=== PATIENT | female | born 2000 ===

== ENCOUNTER 2023-11-17 15:23 | Outpatient (CLI) | payer BC, SELFPAY ==
[2023-11-17 20:13] LABS: Alanine Aminotransferase 18 U/L (6-35); Albumin Level 4.8 g/dL (3.5-5.1); Alkaline Phosphatase 101 U/L (38-126); Anion Gap 10 mmol/L (4-12); Aspartate Amino Transferase 45 U/L (14-36); Bilirubin,Total 0.4 mg/dL (0.2-1.3); Blood Urea Nitrogen 11 mg/dL (7-17); Calcium 10.1 mg/dL (8.4-10.2); Carbon Dioxide 24 mmol/L (22-30); Chloride 105 mmol/L (98-107); Estimated Glomerular Filt Rate > 60; Glucose 98 mg/dL (65-110); Potassium 4.3 mmol/L (3.4-5.0); Sodium 139 mmol/L (137-145)
[2023-11-17 20:38] LABS: Iron 93 ug/dL (37-170)
[2023-11-17 20:39] LABS: Hematocrit 47.5 % (37.0-47.0); Hemoglobin 15.4 g/dL (12.0-15.0); Mean Corpuscular HGB Conc 32.4 g/dl (32-36); Mean Corpuscular Hemoglobin 30.7 pg (26-34); Mean Corpuscular Volume 94.6 fl (80-100); Mean Platelet Volume 12.8 fl (7.4-10.4); Platelet Count Result 332 k/mm3 (150-375); Red Blood Count 5.02 M/mm3 (4.2-5.4); Red Cell Distribution Width 12.2 % (11.5-14.5); White Blood Count 9.2 K/mm3 (4.5-10.0)
[2023-11-17 20:57] LABS: Free T4 Free Thyroxine 1.17 ng/mL (0.78-2.19)
[2023-11-17 20:59] LABS: Percent Iron Saturation 28 % (20-50)
[2023-11-19 07:58] LABS: Thyroid Peroxidase Antibodies 1 IU/mL (<9)
== END 2023-11-17 15:24 | disposition home or self-care (01) ==
PROVIDERS: PCP Nurse Practitioner Adult Health; Visit Provider Nurse Practitioner Adult Health
DX: Z13.9 Encounter for screening, unspecified (principal); R63.5 Abnormal weight gain; E83.119 Hemochromatosis, unspecified
CPT/HCPCS: 36415; 80053; 82728; 83540; 83550; 84439; 84443; 85027; 86376